=== PATIENT | female | born 1945 | race Caucasian/White ===

== ENCOUNTER 2024-07-09 08:11 | Outpatient (CLI) | payer MEDICARE, BC | END 2024-07-09 08:12 | disposition home or self-care (01) | LOC: CSHMAMMO 08:11 | PROVIDERS: ATTEND Specialist | DX: Z12.31 Encounter for screening mammogram for malignant neoplasm of breast (principal); Z85.3 Personal history of malignant neoplasm of breast; Z86.000 Personal history of in-situ neoplasm of breast; Z98.890 Other specified postprocedural states | CPT/HCPCS: 77063; 77067 ==